=== PATIENT | female | born 1960 | race African-American/Black ===

== ENCOUNTER 2017-01-12 17:22 | Emergency (ER) | payer MEDICARE, OTHER ==
[~2017-01-12 17:22] MED LIST: FAMO-63 PO; OXYC-327 PO; PRED-220 PO; TRIA15OI TP
--- NOTE | 2017-01-12 18:33 | PHYS DOC ---
Past Medical History Past Medical History: No Pertinent History Past Surgical History: Gastric Bypass, Knee Replacement Additional Past Surgical Histo: Bilateral carpal tunnel surgery. Alcohol Use: None Drug Use: None Adult General Chief Complaint Chief Complaint: KNEE INJURY HPI HPI Patient is a 56 year old female presents to the emergency department stating that she had fallen on her stairs 2 days ago. She states that she was carrying some laundry up and got her foot caught in one of the sheets and fell. She states that she's had a knee replacement done in February 2016. She states that she has been having increased pain in the. She denies any numbness or tingling down to the lower extremity. She states that she's been able to ambulate with a cane in which as is her normal ambulation technique. Patient has slight swelling noted although no discoloration noted around the knee. Tenderness noted over the patella. Review of Systems Review of Systems Constitutional: Denies fever or chills [] Eyes: Denies change in visual acuity, redness, or eye pain [] HENT: Denies nasal congestion or sore throat [] Respiratory: Denies cough or shortness of breath [] Cardiovascular: No additional information not addressed in HPI [] GI: Denies abdominal pain, nausea, vomiting, bloody stools or diarrhea [] : Denies dysuria or hematuria [] Musculoskeletal: Denies back pain. Complaint of right knee pain Integument: Denies rash or skin lesions [] Neurologic: Denies headache, focal weakness or sensory changes [] Endocrine: Denies polyuria or polydipsia [] Allergies Allergies Allergies Coded Allergies Type Severity Reaction Last Updated Verified No Known Drug Allergies 03/11/16 No Physical Exam Physical Exam Constitutional: Well developed, well nourished, no acute distress, non-toxic appearance. [] HENT: Normocephalic, atraumatic, bilateral external ears normal, oropharynx moist, no oral exudates, nose normal. [] Eyes: PERRLA, EOMI, conjunctiva normal, no discharge. [] Neck: Normal range of motion, no tenderness, supple, no stridor. [] Cardiovascular:Heart rate regular rhythm Lungs & Thorax: Bilateral breath sounds clear to auscultation [] Skin: Warm, dry, no erythema, no rash. [] Back: No tenderness Extremities: Right patella tenderness noted, no cyanosis, no clubbing, ROM intact, no edema. Slight swelling noted of the knee, no discoloration noted patient does have slightly decreased range of motion at completely bending the knee in a 90 angle. Patient is able to straighten the leg completely. Peripheral pulses are 2+ cap refill brisk less than 2 seconds. Neurologic: Alert and oriented X 3, normal motor function, normal sensory function, no focal deficits noted. [] Psychologic: Affect normal, judgement normal, mood normal. [] Current Patient Data Vital Signs Vital Signs Date Time Temp Pulse Resp B/P (MAP) Pulse Ox O2 Delivery O2 Flow Rate FiO2 01/12/17 17:36 98.4 63 20 95 Room Air 98.4 EKG EKG [] Radiology/Procedures Radiology/Procedures [] Course & Med Decision Making Course & Med Decision Making Pertinent Labs and Imaging studies reviewed. (See chart for details) X-ray was negative for any bony abnormalities per Dr. Gore. Patient will be recommended to use her tramadol as prescribed. Also recommended continuing with her meloxicam. Ice packs on 20 minutes off 20 minutes several times a day elevation as much as possible. Also recommended that the patient continue to keep her appointment in which she had made for follow-up with her orthopedic in January. Patient was provided with signs and symptoms to return back to emergency department. Patient agrees with discharge instructions treatment regimens and follow-up recommendations [] Dragon Disclaimer Dragon Disclaimer This electronic medical record was generated, in whole or in part, using a voice recognition dictation system. Departure Departure Impression: Primary Impression: Knee pain, right Additional Impression: Fall Disposition: 01 HOME, SELF-CARE Condition: STABLE Referrals: YANET DOMINGUEZ MD (PCP) Patient Instructions: Fall Prevention and Home Safety, [id number], Knee Pain , [id number] Additional Instructions: X-rays were negative for any bony abnormalities. Activity as tolerated. Ice packs on 20 minutes off 20 minutes several times a day. Continue to use tramadol for pain and discomfort as prescribed. He may need to use it more than every 12 hours. Continue with your meloxicam in which she stated take daily. Elevation as much as possible. Follow-up with your orthopedic in the next 3-5 days if he continued have pain and discomfort. Return back to emergency department for signs and symptoms of become worse. Problem Qualifiers RAMEZ ZACARIAS APRN Jan 12, 2017 18:33
[2017-01-12] MEDS ORDERED: HYDROcodone/APAP 5/325MG 1 TAB TABLET PO ONE (18:45)
[2017-01-12 19:26] VITALS: BP 207/103
--- NOTE | 2017-01-13 08:11 | RAD ---
Right knee with patella, 4 views, 01/12/2017: History: Fall, pain A total knee prosthesis is in place in satisfactory position. There is no radiographic evidence of loosening or infection. No acute fracture or dislocation is evident. There is a prominent periarticular calcification posteriorly. IMPRESSION: 1. A right total knee prosthesis is in satisfactory position. 2. No acute bony abnormality is detected.
== END 2017-01-12 19:26 | disposition home or self-care (01) ==
LOC: ER 17:22
DX: M25.561 Pain in right knee (principal); G56.03 Carpal tunnel syndrome, bilateral upper limbs; Z96.659 Presence of unspecified artificial knee joint; W10.9XXA Fall (on) (from) unspecified stairs and steps, initial encounter; Y93.89 Activity, other specified; Y92.89 Other specified places as the place of occurrence of the external cause; Y99.8 Other external cause status
CPT/HCPCS: 73564; 99284

== ENCOUNTER 2017-01-20 19:42 | Emergency (ER) | payer MEDICARE, OTHER ==
[2017-01-20] MEDS ORDERED: NAPROXEN 500 MG TABLET PO STA (20:12)
[2017-01-20] MEDS ORDERED: CYCLOBENZAPRINE 10 MG TABLET. PO ONE (20:15)
[2017-01-20] MEDS ORDERED: HYDROcodone/APAP 5/325MG 1 TAB TABLET PO ONE (20:15)
[2017-01-20] MEDS ORDERED: HYDR-971 PO (20:24)
[2017-01-20] MEDS ORDERED: NAPR500T8 PO (20:24)
[2017-01-20] MEDS ORDERED: CYCL10TA2 PO (20:24)
--- NOTE | 2017-01-20 20:24 | PHYS DOC ---
Past Medical History Past Medical History: Hypertension, Other Additional Past Medical Histor: chronic back pain Past Surgical History: Gastric Bypass, Knee Replacement Additional Past Surgical Histo: Bilateral carpal tunnel surgery. Alcohol Use: None Drug Use: None Adult General Chief Complaint Chief Complaint: LOWER BACK PAIN OR INJURY HPI HPI Patient is a 56 year old female with history of hypertension who presents today with chronic moderate bilateral low back pain radiating to bilateral lower extremities with chronic numbness and tingling to bilateral buttocks and left lower extremity that got worse in the last 7 days after falling on her knees. Patient states she was evaluated in the ED after her fall. Patient denies any loss of bowel bladder function. Review of Systems Review of Systems Constitutional: Denies fever or chills [] Eyes: Denies change in visual acuity, redness, or eye pain [] HENT: Denies nasal congestion or sore throat [] GI: Denies abdominal pain, nausea, vomiting, bloody stools or diarrhea [] : Denies dysuria or hematuria [] Musculoskeletal: back pain Integument: Denies rash or skin lesions [] Neurologic: Denies headache, focal weakness or sensory changes [] Endocrine: Denies polyuria or polydipsia [] Current Medications Current Medications Current Medications Medications (Trade) Dose Ordered Sig/Josh Start Time Stop Time Status Last Admin Dose Admin Acetaminophen/ Hydrocodone Bitart (Lortab 5/325) 2 tab 1X ONCE 01/20/17 20:15 01/20/17 20:16 DC 01/20/17 20:22 2 TAB Cyclobenzaprine HCl (Flexeril) 10 mg 1X ONCE 01/20/17 20:15 01/20/17 20:16 DC 01/20/17 20:22 10 MG Naproxen (Naprosyn) 500 mg 1X STAT 01/20/17 20:12 01/20/17 20:15 DC 01/20/17 20:22 500 MG Allergies Allergies Allergies Coded Allergies Type Severity Reaction Last Updated Verified No Known Drug Allergies 03/11/16 No Physical Exam Physical Exam Constitutional: Well developed, well nourished, no acute distress, non-toxic appearance. [] HENT: Normocephalic, atraumatic, bilateral external ears normal, oropharynx moist, no oral exudates, nose normal. [] Eyes: PERRLA, EOMI, conjunctiva normal, no discharge. [] Neck: Normal range of motion, no tenderness, supple, no stridor. [] Cardiovascular:Heart rate regular rhythm, no murmur [] Lungs & Thorax: Bilateral breath sounds clear to auscultation [] Abdomen: Bowel sounds normal, soft, no tenderness, no masses, no pulsatile masses. [] Skin: Warm, dry, no erythema, no rash. [] Back: Obese patient. Diffuse paraspinal muscle tenderness to bilateral low lumbar region worse on bilateral SI joints, no midline lumbar spine tenderness, no CVA tenderness. [] Extremities: No tenderness, no cyanosis, no clubbing, ROM intact, no edema. [] Neurologic: Alert and oriented X 3, normal motor function, normal sensory function, no focal deficits noted. [] Psychologic: Affect normal, judgement normal, mood normal. [] Current Patient Data Vital Signs Vital Signs Date Time Temp Pulse Resp B/P (MAP) Pulse Ox O2 Delivery O2 Flow Rate FiO2 01/20/17 20:05 98.7 72 18 97 Room Air 98.7 EKG EKG [] Radiology/Procedures Radiology/Procedures [] Course & Med Decision Making Course & Med Decision Making Pertinent Labs and Imaging studies reviewed. (See chart for details) This is an overweight patient presenting in the ED today with complaints of exacerbation of chronic low back pain radiating to bilateral lower extremities with chronic back and lower extremity bilaterally numbness and tingling. Patient did fall a week ago and was seen in the ED and evaluated for the fall. Patient denies any loss of bowel bladder function. She follows up with Dr. Jennifer mayfield. Patient is very concerned about the cost of more radiology studies in the ED. Recommended she follows up with her PCP for outpatient radiology studies as well as blood pressure management considering her BP was 193/113 with a heart rate of 72. She has history of hypertension but does not take anything for it. She will be discharged with naproxen, Flexeril and Deale as well as Medrol Dosepak and instructed to follow-up with her own PCP next week. Dragon Disclaimer Dragon Disclaimer This electronic medical record was generated, in whole or in part, using a voice recognition dictation system. Departure Departure Impression: Primary Impression: Low back pain Additional Impressions: Chronic sciatica of right side Chronic sciatica of left side Accelerated hypertension Disposition: HOME, SELF-CARE Condition: STABLE Referrals: JENNIFER DOMINGUEZ MD (PCP) Follow-up with your primary care doctor next week TORRES ACOSTA MD You can follow-up with the pain clinic next week Patient Instructions: Back Pain, Adult, Sciatica Additional Instructions: You were seen for exacerbation of chronic back pain your blood pressure was also elevated at 193/113. Follow-up with your own doctor next week you might need to be put on blood pressure medicines. Take the prescribed medicines as ordered. You can apply heat or ice to the affected area. Return to the ED at any point symptoms worsen especially if you develop any loss of bowel or bladder function. Scripts Naproxen (NAPROXEN) 500 Mg Tablet.dr 1 TAB PO BID, #60 TAB 2 Refills Prov: SIMONA TA APRN 01/20/17 Cyclobenzaprine Hcl (CYCLOBENZAPRINE HCL) 10 Mg Tablet 1 TAB PO TID, #30 TAB Prov: SIMONA TA APRN 01/20/17 Hydrocodone/Apap 5-325 (NORCO 5-325 TABLET) 1 Each Tablet 1-2 TAB PO Q4-6HRS, #20 TAB Prov: SIMONA TA APRN 01/20/17 Problem Qualifiers Primary Impression: Low back pain Chronicity: chronic Back pain laterality: bilateral Sciatica presence: with sciatica Sciatica laterality: bilateral sciatica Qualified Codes: M54.42 - Lumbago with sciatica, left side; M54.41 - Lumbago with sciatica, right side; G89.29 - Other chronic pain SIMONA TA APRN Jan 20, 2017 20:24
[2017-01-20 20:28] VITALS: BP 201/109
== END 2017-01-20 20:29 | disposition home or self-care (01) ==
LOC: ER 19:42
DX: M54.41 Lumbago with sciatica, right side (principal); M54.42 Lumbago with sciatica, left side; G89.29 Other chronic pain; I10 Essential (primary) hypertension; Z96.659 Presence of unspecified artificial knee joint; Z98.84 Bariatric surgery status
CPT/HCPCS: 99284

== ENCOUNTER 2017-07-08 13:24 | Emergency (ER) | payer MEDICARE, OTHER ==
[~2017-07-08] VITALS: Ht 170.2 cm; Wt 142.9 kg
[~2017-07-08 13:24] MED LIST changes: +CYCL10TA2 PO; +HYDR-971 PO; +NAPR500T8 PO
[2017-07-08 13:30] VITALS: BP 170/81
[2017-07-08] MEDS ORDERED: KETOROLAC 60 MG/2 ML INJ. IM ONE (13:45)
[2017-07-08] MEDS ORDERED: DEXAMETHASONE SOD PHOS 20 MG/5 ML VIAL. IM ONE (13:45)
[2017-07-08] MEDS ORDERED: HYDROcodone/APAP 5/325MG 1 TAB TABLET PO ONE (13:45)
--- NOTE | 2017-07-08 13:49 | PHYS DOC ---
Past Medical History Past Medical History: Arthritis, Hypertension, Other Additional Past Medical Histor: chronic back pain Past Surgical History: Gastric Bypass, Knee Replacement Additional Past Surgical Histo: Bilateral carpal tunnel surgery. Alcohol Use: None Drug Use: None Adult General Chief Complaint Chief Complaint: LOWER EXT PAIN [facility] HPI Patient is a 56 year old female with history of hypertension, arthritis to bilateral knees with right knee replacement who presents today complaining of moderate pain to the anterior aspect of the left knee that began yesterday. Patient denies any known injury. She states her pain is worse on weight bearing. She is overweight. Review of Systems Review of Systems Constitutional: Denies fever or chills [] Cardiovascular: No additional information not addressed in HPI [] Musculoskeletal: left knee pain Integument: Denies rash or skin lesions [] Neurologic: Denies headache, focal weakness or sensory changes [] All other systems were reviewed and found to be within normal limits, except as documented in this note. Current Medications Current Medications Current Medications Medications (Trade) Dose Ordered Sig/Josh Start Time Stop Time Status Last Admin Dose Admin Acetaminophen/ Hydrocodone Bitart (Lortab 5/325) 2 tab 1X ONCE 07/08/17 13:45 07/08/17 13:46 DC 07/08/17 13:50 2 TAB Dexamethasone Sodium Phosphate (Decadron) 10 mg 1X ONCE 07/08/17 13:45 07/08/17 13:46 DC 07/08/17 13:51 10 MG Ketorolac Tromethamine (Toradol Im) 60 mg 1X ONCE 07/08/17 13:45 07/08/17 13:46 DC 07/08/17 13:50 60 MG Allergies Allergies Allergies Coded Allergies Type Severity Reaction Last Updated Verified No Known Drug Allergies 03/11/16 No Physical Exam Physical Exam Constitutional: Well developed, well nourished, no acute distress, non-toxic appearance. [] Skin: Warm, dry, no erythema, no rash. [] Back: No tenderness, no CVA tenderness. [] Extremities: Overweight patient. Exam very difficult. No obvious deformity noted on the left lower extremity. Very limited range of motion to the left knee mostly due to weight and pain. +2 left pedal pulse. Cap refill less than 2 seconds the left toes. Sensation intact to the left lower extremity. Neurologic: Alert and oriented X 3, normal motor function, normal sensory function, no focal deficits noted. [] Psychologic: Affect normal, judgement normal, mood normal. [] Current Patient Data Vital Signs Vital Signs Date Time Temp Pulse Resp B/P (MAP) Pulse Ox O2 Delivery O2 Flow Rate FiO2 07/08/17 13:30 98.2 67 16 97 Room Air 98.2 EKG EKG [] Radiology/Procedures Radiology/Procedures []PROCEDURE: KNEE LEFT 4V 4 view left knee 07/08/2017 Clinical indication: Left knee pain. No known injury. Comparison: None. Findings: Moderate tricompartment degenerative changes with joint space narrowing and osteophytic spurring. No acute fracture or traumatic malalignment. No significant knee joint effusion. Impression: Moderate tricompartment degenerative changes. DICTATED and SIGNED BY: ABHIJEET JUNIOR MD DATE: 07/08/17 0463 CC: YANET DOMINGUEZ MD; SIMONA TA APRN ~ Course & Med Decision Making Course & Med Decision Making Pertinent Labs and Imaging studies reviewed. (See chart for details) This is a 56-year-old female patient with left knee pain. Left knee x-rays interpreted by radiologist were noted for moderate tricompartment degenerative changes. Patient was discharged with instructions to follow-up with her orthopedic doctor. Discharged on Medrol Dosepak and ultram. Dragon Disclaimer Dragon Disclaimer This electronic medical record was generated, in whole or in part, using a voice recognition dictation system. Departure Departure Impression: Primary Impression: DJD (degenerative joint disease) of knee Disposition: 01 HOME, SELF-CARE Condition: STABLE Referrals: YANET DOMINGUEZ MD (PCP) JOCELYN ROWELL MD follow up with your doctor next week Patient Instructions: Arthritis, Nonspecific, Knee Pain, [id number] Additional Instructions: You were seen for left knee pain. Your left knee x-ray was noted for moderate arthritis in the left knee. Please contact your orthopedic doctor on Monday and set up a follow-up appointment. Scripts Tramadol Hcl (ULTRAM) 50 Mg Tablet 1 TAB PO Q6HRS, #30 TAB Prov: SIMONA TA APRN 07/08/17 Methylprednisolone (MEDROL) 4 Mg Tab.ds.pk 1 PKG PO UD, #1 PKG Prov: SIMONA TA APRN 07/08/17 Problem Qualifiers Primary Impression: DJD (degenerative joint disease) of knee Osteoarthritis type: primary Laterality: left Qualified Codes: M17.12 - Unilateral primary osteoarthritis, left knee SIMONA TA APRN Jul 08, 2017 13:49
--- NOTE | 2017-07-08 14:09 | RAD ---
4 view left knee 07/08/2017 Clinical indication: Left knee pain. No known injury. Comparison: None. Findings: Moderate tricompartment degenerative changes with joint space narrowing and osteophytic spurring. No acute fracture or traumatic malalignment. No significant knee joint effusion. Impression: Moderate tricompartment degenerative changes.
[2017-07-08] MEDS ORDERED: TRAM-48 PO (14:34)
[2017-07-08] MEDS ORDERED: METH4TAB2 PO (14:34)
== END 2017-07-08 15:01 | disposition home or self-care (01) ==
LOC: ER 13:24
DX: M17.12 Unilateral primary osteoarthritis, left knee (principal); I10 Essential (primary) hypertension; G89.29 Other chronic pain; Z96.659 Presence of unspecified artificial knee joint
CPT/HCPCS: 73564; 96372; 99284; J1100; J1885

== ENCOUNTER 2017-11-07 14:45 | Emergency (ER) | payer MEDICARE, MEDICAID, OTHER ==
[2017-11-07] MEDS: KETOROLAC 60 MG/2 ML INJ. IM (15:26)
== END 2017-11-07 15:42 | disposition home or self-care (01) ==
LOC: ER 14:45
DX: M54.42 Lumbago with sciatica, left side (principal); I10 Essential (primary) hypertension; M19.90 Unspecified osteoarthritis, unspecified site; G89.29 Other chronic pain; Z96.651 Presence of right artificial knee joint
CPT/HCPCS: 96372; 99284; J1885

== ENCOUNTER → 2017-12-21 | Outpatient (CLI) | payer MEDICARE, MEDICAID | END | disposition home or self-care (01) | LOC: KCIC MRI 16:02 | DX: M48.061 Spinal stenosis, lumbar region without neurogenic claudication (principal); M51.36 Other intervertebral disc degeneration, lumbar region; M47.896 Other spondylosis, lumbar region; M25.78 Osteophyte, vertebrae | CPT/HCPCS: 72148 ==

== ENCOUNTER → 2019-01-03 | Outpatient (CLI) | payer MEDICARE, MEDICAID ==
[2017-11-07 15:42] VITALS: BP 175/91
[~2019-01-03] MED LIST changes: +HYDR-3164 PO; -HYDR-971 PO; +METH4TAB2 PO; -OXYC-327 PO; +OXYC1TAB19 PO; +TRAM-48 PO; +TRAM50TA PO
--- NOTE | 2019-01-03 16:57 | KCIC ---
MRI of the lumbar spine without contrast 01/03/2019 CLINICAL HISTORY: Low back pain with chronic bilateral leg numbness. TECHNIQUE: Unenhanced T1-weighted and T2-weighted sagittal and axial and inversion recovery sagittal images of the lumbar spine were obtained. FINDINGS: Comparison study is dated 12/21/2017. Mild S-shaped curvature of the thoracolumbar spine is seen. Degenerative signal changes and loss of height are seen involving all of the disks of the lumbar spine along with the visualized disks of the thoracic spine. Degenerative signal changes are seen within the marrow surrounding these discs. Increased signal intensity seen on the T2-weighted and inversion recovery images involving the distal thoracic spinal cord at the T10-11 level. This measures 4 mm in size. This is consistent with myelomalacia. The conus medullaris is normal in position and signal characteristics. Rounded high signal intensity lesions are seen on the T2-weighted images involving the right kidney. These measure 2 cm and 4.7 cm in size. These likely represent cysts. At the T10-11 disc space there is a moderate generalized disc bulge. Degenerative changes are seen involving the facet joints bilaterally. These findings result in severe central spinal canal stenosis and severe cord impingement on the sagittal images. The neural foramen are not well evaluated. At the T11-12 disc space there is a mild to moderate generalized disc bulge. Degenerative changes are seen involving the facet joints bilaterally. These findings result in mild central spinal canal stenosis without evidence of cord impingement. No neural foraminal stenosis is seen. At the T12-L1 disc space there is a mild to moderate generalized disc bulge. This is eccentric to the right. Degenerative changes are seen involving the facet joints bilaterally. These findings result in mild right-sided central spinal canal stenosis without evidence of cord impingement. No neural foraminal stenosis is seen. At the L1-2 disc space there is a mild to moderate generalized disc bulge. This is eccentric to the right. Degenerative changes are seen involving the facet joints bilaterally. There is mild ligamentum flavum hypertrophy bilaterally. These findings when combined result in mild central spinal canal stenosis. Mild to moderate right greater than left neural foraminal stenosis is seen. At the L2-3 disc space is a moderate generalized disc bulge. degenerative changes are seen involving the facet joints bilaterally. there is moderate ligament flavum hypertrophy bilaterally. These findings when combined result in moderate central spinal canal stenosis. Mild to moderate right greater than left neural foraminal stenosis is seen. At the L3-4 disc space there is a posterior vertebral body osteophyte formation. Degenerative changes are seen involving the facet joints bilaterally. These findings result in mild central spinal canal stenosis. Mild to moderate bilateral neural foraminal stenosis is seen. At the L4-5 disc space is a moderate generalized disc bulge. Degenerative changes are seen involving the facet joints bilaterally. There is mild ligamenta flavum hypertrophy bilaterally. Small facet joint effusions are seen bilaterally. These findings result in severe central spinal canal stenosis. Moderate to severe left greater than right neural foraminal stenosis is seen. At the L5-S1 disc space is a mild generalized disc bulge. Degenerative changes are seen involving the facet joints bilaterally. There is mild ligament flavum hypertrophy bilaterally. These findings when combined do not result in significant central spinal canal stenosis. No neural foraminal stenosis is seen. The degenerative changes have not significantly changed since the previous examination. IMPRESSION: The changes of degenerative disc disease are seen involving the lower thoracic and throughout the lumbar spine. These findings result in severe central spinal canal stenosis with severe cord impingement at T10-11, mild central spinal canal stenosis at T11-T12, mild right-sided central spinal canal stenosis at T12-L1 mild central spinal canal stenosis at L1-2, moderate central spinal canal stenosis at L2-3, mild central spinal canal stenosis at L3-4 and severe central spinal canal stenosis at L4-5. Multilevel neural foraminal stenosis of varying severity is seen as discussed above. An area of myelomalacia is seen involving the distal thoracic spinal cord at the T10-11 level. Electronically signed by: Michael Ybarra MD (01/03/2019 4:54 PM) [id number]
== END | disposition home or self-care (01) ==
LOC: KCIC MRI 14:00
PROVIDERS: ATTEND Family Medicine
DX: M51.35 Other intervertebral disc degeneration, thoracolumbar region (principal); M47.815 Spondylosis without myelopathy or radiculopathy, thoracolumbar region; M48.05 Spinal stenosis, thoracolumbar region; M25.48 Effusion, other site; M25.78 Osteophyte, vertebrae; G95.89 Other specified diseases of spinal cord
CPT/HCPCS: 72148